=== PATIENT | male | born 1930 | race Caucasian/White ===

== ENCOUNTER 2018-04-26 16:47 | Inpatient (IN) | payer MEDICARE, OTHER ==
[~2018-04-26] VITALS: Ht 172.7 cm; Wt 75.5 kg
--- NOTE | 2018-04-26 18:50 | ERD ---
ER Documentation Chief Complaint Chief Complaint GRND LEVEL FALL WITH LAC TO LEFT FOREHEAD AND POSS LT RING FINGER DISLOCATI HPI This is an 87-year-old male with a past medical history of Alzheimer's dementia who is presenting after a fall. The patient was with his son in the backyard of their home speaking to their neighbors when the patient lost his balance and started to fall. The patient's son grabbed him and was able to slowly bring him to the ground, but the patient still fell on his left hand and hit his head against the dirt in the plantar where they were standing. The patient sustained an abrasion and hematoma around the left eyebrow. He also has tenderness to the left hand. The patient did not lose consciousness. There is no other reported trauma or injury. History and physical is limited secondary to altered mentation as the patient is nonverbal. ROS Review of systems limited secondary to patient's altered mentation. Patient is nonverbal. Allergies Allergies: Coded Allergies: Unknown: Unable to obtain (Unverified , 04/26/18) PMhx/Soc Medical and Surgical Hx: pt denies Surgical Hx History of Surgery: No Anesthesia Reaction: No Hx Neurological Disorder: No Hx Respiratory Disorders: No Hx Cardiac Disorders: No Hx Psychiatric Problems: Yes (alzheimers) Hx Miscellaneous Medical Probl: No Hx Alcohol Use: No Hx Substance Use: No Hx Tobacco Use: No Smoking Status: Former smoker FmHx Family History: No diabetes Physical Exam Vitals Vital Signs Date Temp Pulse Resp B/P (MAP) Pulse Ox O2 O2 Flow FiO2 Time Delivery Rate 04/26/18 98.2 75 16 151/74 97 17:06 (99) Physical Exam Const: No apparent distress, well-developed, well-nourished Head: Normocephalic. Left eyebrow abrasion and hematoma. Eyes: Normal Conjunctiva. Pupils equal, round and reactive to light ENT: Normal External Ears, Nose and Mouth. Neck: Full range of motion. No meningismus. Resp: Clear to auscultation bilaterally, No wheezes, rales or rhonchi Cardio: Regular rate and rhythm. No murmurs, rubs or gallops Abd: Soft, non tender, non distended. Normal bowel sounds Skin: No petechiae or rashes Back: No midline tenderness. No CVA tenderness. Ext: No cyanosis, or edema. Tenderness to the third and fourth digits of the left hand. Pelvis is stable. Neur: Awake and alert. Nonverbal, oriented x0. No facial droop. Moves all extremities spontaneously and pain. No obvious focal deficits. Psych: Demented, nonverbal Procedures/MDM MDM The patient's presentation warrants further investigation. Previous medical records, if available, were reviewed. EKG EKG read by me: Rate/Rhythm: Regular rate and rhythm at a rate of 75 bpm Intervals: Normal Campbell: Normal Impression: No evidence of acute ischemia or arrhythmia IMAGING Imaging and Radiology interpretation reviewed. CXR FINDINGS: No acute infiltrate, pleural effusion or pneumothorax is identified. Cardiomediastinal silhouette is within normal limits. Aortic atherosclerotic calcification is noted. The osseous structures are remarkable for degenerative enthesopathy of the spine. IMPRESSION: No evidence of acute cardiopulmonary process. Aortic atherosclerosis. Electronically viewed and signed by .Roland Mahmood MD, MD on 04/26/2018 18:19 XR Pelvis FINDINGS: No acute fracture or dislocation. Bony mineralization is normal. No radiodense foreign body is identified. Atherosclerotic calcifications are noted. IMPRESSION: No evidence of acute fracture or dislocation. Electronically viewed and signed by .Roland Mahmood MD, MD on 04/26/2018 18:19 XR L Hand FINDINGS: Study is limited by patient position during imaging, with flexion of the fingers, and secondary to patient's hand and fingers being held by a second person. Demineralization limits evaluation of fine osseous detail. Proximal at the proximal interarticular metaphyses of the third and fourth proximal phalanges, with disruption of the fourth MCP joint. There is about 10 mm lateral dislocation of the base of the fourth proximal phalanx on the head of the fourth metacarpal. No additional fractures are identified on this limited series. Soft tissue calcifications are seen in the fingers, and findings may represent the sequela of scleroderma. IMPRESSION: Fractures at the interarticular bases of the third and fourth proximal phalanges, with disruption of the fourth MCP joint. Electronically viewed and signed by Physician Giovanna on 04/26/2018 18:31 CT Head FINDINGS: There is no intracranial hemorrhage, mass effect, or midline shift. No extra-axial fluid collection is seen. Moderate atrophy is identified with bifrontal and by temporal lobe predominance. Prominence of the extraaxial spaces in these locations is noted. Mild decreased attenuation is seen in the periventricular and deep white matter, compatible with microvascular ischemic disease. The beckford white matter differentiation is well preserved with no acute infarct detected. The osseous structures and visualized paranasal sinuses are unremarkable. IMPRESSION: No evidence of acute intracranial pathology. Moderate disproportionate bitemporal and bifrontal lobe atrophy. There is mild microvascular ischemic disease in the periventricular and deep white matter. Electronically viewed and signed by Edita Carrillo MD, on 04/26/2018 17:57 CT C-Spine FINDINGS: There is straightening of the normal lordosis of the cervical spine. Trace anterolisthesis of C2 on C3 and C4 on C5 is noted. There is trace retrolisthesis at C3-4. There is evidence of mild compression of the superior endplate of T1, which appears chronic. No definite acute fracture is evident. C2-3: The disc is normal in height. No significant disk bulge or protrusion is evident. There is no central canal stenosis or foraminal narrowing. There is mild bilateral facet arthropathy. C3-4: There is severe disc space narrowing. A broad based osteophyte/disc complex results in severe acquired central canal stenosis with the AP diameter of the canal measuring approximately 6 mm. Uncovertebral osteophytes and facet arthropathy results in moderate bilateral foraminal narrowing. C4-5: The disc is normal in height. There is a small posterior disc bulge resulting in borderline central stenosis. Facet arthropathy and uncovertebral osteophytes are noted though the foramen are adequately patent. C5-6: Severe disc space narrowing is evident. A broad based osteophyte/disc complex results in mild central stenosis. Uncovertebral osteophytes contributes to severe right and moderate - severe left foraminal narrowing. C6-7: There is moderate - severe disc space narrowing. An osteophyte/disc complex is present without central stenosis per day uncovertebral osteophytes and facet arthropathy results in moderately severe right and mild to moderate left foraminal narrowing. C7-T1: The disc is normal in height. No significant disk bulge or protrusion is evident. There is no central canal stenosis or foraminal narrowing. IMPRESSION: No definite evidence of acute fracture or suspected traumatic subluxation. There is mild chronic-appearing compression of the superior endplate of T1. There is severe acquired central canal stenosis at C3-4 and mild central stenosis at C5-6. Multilevel foraminal narrowing as outlined in detail above. Electronically viewed and signed by .Joseline Carrillo MD, on 04/26/2018 18:02 TREATMENT/DISPOSITION The patient presents after a trauma. He had a mechanical fall and sustained injuries to the left hand and head. The patient was evaluated fully without evidence of emergent posttraumatic pathology. The patient's CT imaging of the head and cervical spine are unremarkable. The patient has no focal deficits. I've low suspicion for intracranial pathology. I have low suspicion for cerebral ischemia or intracranial hemorrhage. The patient has no cervical spine tenderness. He can move his neck in all directions without any pain. As stated above, he does not have any focal deficits. The patient does not have any saddle anesthesia. He has not been incontinent of urine or stool. He has not had any retention of urine or stool. I have low suspicion for spinal cord injury. The patient's chest x-ray does not reveal any evidence of pneumonia or pneumothorax or pulmonary edema or pleural effusion. The patient's cardiomediastinal silhouette is unremarkable. I do not suspect pericardial effusion. I do not see any mediastinal free air. I have low suspicion for esophageal tear or rupture. The patient does not have a widened mediastinum. The patient does not have chest pain radiating to the back. It does not have a sharp or tearing quality. I have low suspicion for thoracic aortic aneurysm or rupture or dissection. The patient's symptoms are not consistent with pulmonary embolism. The patient does not have any abdominal pain. I have low suspicion for posttraumatic intra-abdominal pathology. The patient's vital signs are unremarkable. I low suspicion for hepatic or splenic or renal trauma. The patient does not have any GI or urinary bleeding. I decreased suspicion for intestinal injury. I have low suspicion for urethral injury. The patient does have fractures to the third and fourth digits of the left hand. No reduction is necessary at this time. A splint was applied under my direct supervision. The patient was reassessed and neurovascularly intact with normal capillary refill The patient is currently not able to take pills orally per the report of the son. The patient was offered rectal Tylenol, but the son declined. No emergent diagnoses were identified. At this time, I feel that the patient sta ble for discharge. The patient was instructed to follow-up with a primary care physician in 1-3 days. The patient will also require outpatient reevaluation by an orthopedic surgeon in 1 week. The family is aware of this and will coordinate care with the primary care doctor. The patient will be given strict precautions with which to return to the emergency department. The patient's blood pressure was elevated at greater than 120/80 while in the emergency department. The patient was otherwise stable with no evidence of hypertensive urgency or emergency. The patient does not require admission for blood pressure control. I have discussed with the patient the risks of hypertension. I have instructed the patient to return to the ER for any new or worsening symptoms including chest pain, shortness of breath, headache, blurred vision, confusion, nausea, vomiting or LOC. I have advised the patient to follow up with the primary care physician for outpatient monitoring and treatment for hypertension in 1-3 days. Disclaimer: Inadvertent spelling and grammatical errors are likely due to EHR/dictation software use and do not reflect on the overall quality of patient care. Note that the electronic time recorded on this note does not necessarily reflect the actual time of the patient encounter. Departure Diagnosis: Primary Impression: Fall from ground level Additional Impressions: Head trauma Encounter type: initial encounter Qualified Codes: S09.90XA - Unspecified injury of head, initial encounter Facial abrasion Encounter type: initial encounter Qualified Codes: S00.81XA - Abrasion of other part of head, initial encounter Traumatic hematoma of forehead Encounter type: initial encounter Qualified Codes: S00.83XA - Contusion of other part of head, initial encounter Left hand fracture Encounter type: initial encounter Fracture type: closed Qualified Codes: S62.92XA - Unspecified fracture of left wrist and hand, initial encounter for closed fracture Condition: Stable ANANTH PÉREZ MD Apr 26, 2018 18:48
[2018-04-26] MEDS ORDERED: SOD CHLORIDE 0.9% 1,000 ML IV ONE ×2 (20:30→23:00)
[2018-04-26] MEDS ORDERED: ONDANSETRON 4 MG INJ IV PRN ×2 (21:00→22:00)
[2018-04-26] MEDS ORDERED: ACETAMINOPHEN 325 MG TAB PO PRN (21:00)
[2018-04-26] MEDS ORDERED: IPRATROPIUM (HFA) 12.9 GM INHALER INH PRN (22:00)
[2018-04-26] MEDS ORDERED: CEFEPIME 1GM/50 ML (PMX) 50 ML IVPB SCH (22:00)
[2018-04-26] MEDS ORDERED: ACETAMINOPHEN 650MG/20.3ML CUP PO PRN (22:00)
[2018-04-26] MEDS ORDERED: VANCOMYCIN IV PER PHARMACY XX SCH (22:00)
[2018-04-26] MEDS ORDERED: HYDROCODONE/APAP (5/325) TAB PO PRN ×2 (22:00)
[2018-04-26] MEDS ORDERED: NORepinephrine 8MG/250 ML (PMX 250 ML IV SCH (22:00)
[2018-04-26] MEDS ORDERED: ALBUTEROL HFA 8 GM INHALER INH PRN (22:00)
--- NOTE | 2018-04-26 22:11 | HP ---
Date/Time of Note Date/Time of Note DATE: 04/26/18 TIME: 22:11 Assessment/Plan VTE Prophylaxis SCD applied (from Nsg): Yes Pharmacological prophylaxis: NA/contraindicated Pharm contraindication: bleeding Lines/Catheters IV Catheter Type (from Nrsg): Saline Lock Assessment/Plan Assessment/Plan 1. Status post fall with left perinephric/retroperitoneal hematoma as well as left phalangeal fractures -Patient has been in home hospice for over a year for severe dementia. He is taken off hospice status for now -Family does not want any surgical intervention. ER consulted the on-call surgeon, who also does not believe surgery is warranted for the hematoma -Monitor hemoglobin closely -May repeat CT to evaluate for interval change of the hematoma 2. Severe Alzheimer's dementia: See #1 -Will place a palliative care consult 3. Presumed acute on CKD -IV fluid 4. Sepsis: Unknown source -Family is okay with antibiotics -Follow-up bloody urine culture results CODE STATUS: DNR/DNI. Family also refused pressor support Result Diagram: 04/26/18205404/26/182054 Results 24hrs Laboratory Tests Test 04/26/18 20:55 White Blood Count 23.2 H Red Blood Count 3.60 L Hemoglobin 11.6 L Hematocrit 36.6 L Mean Corpuscular Volume 101.7 H Mean Corpuscular Hemoglobin 32.2 Mean Corpuscular Hemoglobin Concent 31.7 L Red Cell Distribution Width 12.7 Platelet Count 179 Mean Platelet Volume 11.6 H Immature Granulocytes % 0.700 H Neutrophils % 88.9 H Lymphocytes % 4.5 L Monocytes % 5.6 Eosinophils % 0.0 Basophils % 0.3 Nucleated Red Blood Cells % 0.0 Immature Granulocytes # 0.160 H Neutrophils # 20.6 H Lymphocytes # 1.0 Monocytes # 1.3 H Eosinophils # 0.0 Basophils # 0.1 Nucleated Red Blood Cells # 0.0 Sodium Level 143 Potassium Level 5.5 H Chloride Level 104 Carbon Dioxide Level 24 Anion Gap 15 H Blood Urea Nitrogen 25 H Creatinine 1.88 H Est Glomerular Filtrat Rate mL/min Glucose Level 164 Calcium Level 9.3 Total Bilirubin 0.6 Direct Bilirubin 0.00 Indirect Bilirubin 0.6 Aspartate Amino Transf (AST/SGOT) 34 Alanine Aminotransferase (ALT/SGPT) 23 Alkaline Phosphatase 66 Total Protein 8.3 H Albumin 4.5 Globulin 3.80 H Albumin/Globulin Ratio 1.18 HPI/ROS Admit Date/Time Admit Date/Time Hx of Present Illness This is an 87-year-old male with history of severe Alzheimer's dementia who was brought to the ER status post fall with a left upper extremity/hand injury. Patient has been on home hospice for over a year because of severe dementia. He is nonverbal and completely unable to provide any history. His son ("I am like his son"), Jeffrey, at the bedside provide information. He said patient lives with him. Both of them were standing outside in the backyard when all of a sudden the patient fell to the ground. His son attempted to hold him but unable to do so. Family reversed his hospice status and brought him to the hospital for evaluation. Left hand x-ray shows third and fourth proximal phalanx fracture with disruption of the fourth MCP. Hand and forearm plan currently in a splint. Head CT without acute findings. Initial WBC 23,000, creatinine 1.88, potassium 5.5. Pelvic CT shows the following. 1. Diffuse left perinephric subcapsular hematoma and left retroperitoneal hematoma in the perinephric and pararenal spaces extending into the pelvis, the volume of blood is difficult to estimate but approximated at 100 cc. 2. Spleen is normal in size, contour and attenuation but there is concern for hemoperitoneum adjacent to the superior aspect of the spleen and contusion anterior to the spleen. 3. Small left pleural effusion with bibasilar subsegmental atelectasis but no evidence of acute post traumatic intrathoracic abnormality, tracheal secretions are incidentally noted. 4. Mild cardiomegaly and atherosclerotic calcification of the aorta. 5. There is no evidence of displaced fracture. 6. Cholelithiasis. 7. Constipation pattern with possible fecal impaction of the rectum. While in the ER, patient became hypotensive with systolic blood pressure in the 60s. He was given IV fluid and was started on PRBCs. Initial hemoglobin was 11.6, repeat 9.7. Family wants to keep him DNR/DNI. The son also refused central line placement for a pressor. Blood pressure however improved and now in the low 100s. Patient is nonverbal, but looks comfortable. His son stated that the only medical problem the patient has is severe Alzheimer's dementia. He had some type of surgery 60 years ago otherwise no history of surgery. PMH/Family/Social Past Medical History Medical History: other (Severe Alzheimer's dementia) Medications Current Medications Ondansetron HCl (Zofran Inj) 4 mg ER BRIDGE PRN IV NAUSEA/VOMITING; Start 04/26/18 at 21:00; Stop 04/27/18 at 20:59 Acetaminophen (Tylenol Tab) 650 mg ER BRIDGE PRN PO .MILD PAIN 1-3 OR TEMP; Start 04/26/18 at 21:00; Stop 04/27/18 at 20:59 Ondansetron HCl (Zofran Inj) 4 mg Q6H PRN IV NAUSEA AND/OR VOMITING; Start 04/26/18 at 22:00 Albuterol (Ventolin Hfa) 4 puff Q2H RESP THERAPY PRN INH SHORTNESS OF BREATH; Start 04/26/18 at 22:00 Ipratropium [place] (Atrovent Hfa) 4 puff Q2H RESP THERAPY PRN INH SHORTNESS OF BREATH; Start 04/26/18 at 22:00 Acetaminophen (Tylenol Liquid) 650 mg Q6H PRN PO PAIN LEVEL 1-3 OR FEVER; Start 04/26/18 at 22:00 Acetaminophen/ Hydrocodone Bitart ([place] (5/325)) 1 tab Q6H PRN PO PAIN LEVEL 4-6; Start 04/26/18 at 22:00 Acetaminophen/ Hydrocodone Bitart ([place] (5/325)) 2 tab Q6H PRN PO PAIN LEVEL 7-10; Start 04/26/18 at 22:00 Norepinephrine 250 ml @ 1.875 mls/ hr PER PROTOCOL IV ; Start 04/26/18 at 22:00 Dextrose/Sodium Chloride 1,000 ml @ 100 mls/hr Q10H IV ; Start 04/26/18 at 22:00 Cefepime HCl 50 ml @ 100 mls/hr Q12 IVPB ; Start 04/26/18 at 22:00 Vancomycin HCl (Vanco Iv Per Pharmacy) VANCOMYCIN PER PHARMACY PER PROTOCOL XX ; Start 04/26/18 at 22:00 Coded Allergies: Unknown: Unable to obtain (Unverified , 04/26/18) Past Surgical History Past Surgical Hx: other (Unknown surgery 60 years ago) Family History Significant Family History: no pertinent family hx Social History Alcohol Use: none Smoking Status: Former smoker Drug Use: none Exam/Review of Systems Vital Signs Vitals Vital Signs Date Temp Pulse Resp B/P (MAP) Pulse Ox O2 O2 Flow FiO2 Time Delivery Rate 04/26/18 75 16 67/41 (50) 98 Room Air 21:01 70 04/26/18 98.2 17:06 Exam Constitutional: other (Nonverbal, not oriented. His eyes are open and he looks comfortable) Head: normocephalic, atraumatic Eyes: PERRL ENMT: other (Edentulous) Respiratory: clear to auscultation Cardiovascular: regular rate and rhythm Gastrointestinal: soft, other (Slight grimace is noted on palpation of left abdomen and flank area. No ecchymosis or swelling noted) Extremities: normal pulses GANESH CHANDLER MD Apr 26, 2018 22:11
[2018-04-26] MEDS ORDERED: SOD CHLORIDE 0.9% 0 ML IV ONE (23:26)
[2018-04-27] VITALS (10 sets, daily range): BP systolic 90–111; BP diastolic 51–67; PULSE 61–78; RESP 18–20; Ht 172.7 cm; Wt 75.5 kg
[2018-04-27] MEDS: DEXTROSE 5%-0.45% NACL 1,000 ML IV SCH ×3 (00:06→18:00)
[2018-04-27] MEDS ORDERED: CEFEPIME 1GM/50 ML (PMX) 50 ML IVPB SCH ×2 (02:00→22:00)
[2018-04-27] MEDS ORDERED: VANCOMYCIN HCL 1.5 GM in SOD CHLORIDE 0.9% 250 ML IVPB SCH ×2 (03:00→06:00)
[2018-04-27] MEDS ORDERED: RIVA1PAT2 TD (14:04)
[2018-04-27] MEDS ORDERED: MEMA10TA PO (14:04)
[2018-04-27] MEDS ORDERED: CYAN100080 PO (14:04)
[2018-04-27] MEDS ORDERED: MULTI PO (14:04)
--- NOTE | 2018-04-27 14:10 | PN ---
Date/Time of Note Date/Time of Note DATE: 04/27/18 TIME: 14:07 Assessment/Plan VTE Prophylaxis SCD applied (from Nsg): Yes Pharmacological prophylaxis: heparin Lines/Catheters IV Catheter Type (from Nrsg): Saline Lock Assessment/Plan Hospital Course 87 yo male wtih advanced dementia who suffered fall leading to kidney hematoma and hemoperitoneum and hand fracture Hemoperitoneum from kindye hematoma: - Monitor CBC, repeat CT PRN for change in clinical status - Very poor surgical candidate and this is generally managed non-surgically regardless Hand fracture: - Continue immobilization Dementia: - Stable Family requesting placement in [facility], CM aware DNR Result Diagram: 04/26/18 2346 04/27/18 0120 Results 24hrs Laboratory Tests Test 04/26/18 20:55 04/26/18 23:46 04/26/18 23:47 04/27/18 01:20 White Blood Count 23.2 H 24.6 H Red Blood Count 3.60 L 3.07 L Hemoglobin 11.6 L 9.7 L Hematocrit 36.6 L 30.6 L Mean Corpuscular Volume 101.7 H 99.7 Mean Corpuscular 32.2 31.6 Hemoglobin Mean Corpuscular 31.7 L 31.7 L Hemoglobin Concent Red Cell Distribution 12.7 12.8 Width Platelet Count 179 147 Mean Platelet Volume 11.6 H 11.7 H Immature Granulocytes % 0.700 H 1.100 H Neutrophils % 88.9 H 88.7 H Lymphocytes % 4.5 L 2.6 L Monocytes % 5.6 7.3 Eosinophils % 0.0 0.0 Basophils % 0.3 0.3 Nucleated Red Blood 0.0 0.0 Cells % Immature Granulocytes # 0.160 H 0.270 H Neutrophils # 20.6 H 21.8 H Lymphocytes # 1.0 0.7 L Monocytes # 1.3 H 1.8 H Eosinophils # 0.0 0.0 Basophils # 0.1 0.1 Nucleated Red Blood 0.0 0.0 Cells # Sodium Level 143 140 Potassium Level 5.5 H 4.9 Chloride Level 104 108 Carbon Dioxide Level 24 23 Anion Gap 15 H 9 # Blood Urea Nitrogen 25 H 24 H Creatinine 1.88 H 1.76 H Est Glomerular Filtrat Rate mL/min Glucose Level 164 379 #H Calcium Level 9.3 7.8 L Total Bilirubin 0.6 0.7 Direct Bilirubin 0.00 0.00 Indirect Bilirubin 0.6 0.7 Aspartate Amino 34 24 Transf (AST/SGOT) Alanine 23 25 Aminotransferase (ALT/SG PT) Alkaline Phosphatase 66 52 Total Protein 8.3 H 6.2 # Albumin 4.5 3.2 #L Globulin 3.80 H 3.00 Albumin/Globulin Ratio 1.18 1.06 Prothrombin Time 13.9 Prothrombin Time Ratio 1.1 INR International 1.06 Normalized Ratio Lipase 107 Subjective 24 Hr Interval Summary Free Text/Dictation Patietn comfortable With dementia unable to communicate Exam/Review of Systems Exam Vitals Vital Signs Date Temp Pulse Resp B/P (MAP) Pulse Ox O2 O2 Flow FiO2 Time Delivery Rate 04/27/18 71 12:01 04/27/18 98.7 18 106/67 94 Room Air 11:40 (80) Exam Appears comfortable, no distress Arousable to noxiosu stimlui Dementia, disoriented Breathign comfortably RRR CTAB L hand in brace Soft nt nd Results Results 24hrs Laboratory Tests Test 04/26/18 20:55 04/26/18 23:46 04/26/18 23:47 04/27/18 01:20 White Blood Count 23.2 H 24.6 H Red Blood Count 3.60 L 3.07 L Hemoglobin 11.6 L 9.7 L Hematocrit 36.6 L 30.6 L Mean Corpuscular Volume 101.7 H 99.7 Mean Corpuscular 32.2 31.6 Hemoglobin Mean Corpuscular 31.7 L 31.7 L Hemoglobin Concent Red Cell Distribution 12.7 12.8 Width Platelet Count 179 147 Mean Platelet Volume 11.6 H 11.7 H Immature Granulocytes % 0.700 H 1.100 H Neutrophils % 88.9 H 88.7 H Lymphocytes % 4.5 L 2.6 L Monocytes % 5.6 7.3 Eosinophils % 0.0 0.0 Basophils % 0.3 0.3 Nucleated Red Blood 0.0 0.0 Cells % Immature Granulocytes # 0.160 H 0.270 H Neutrophils # 20.6 H 21.8 H Lymphocytes # 1.0 0.7 L Monocytes # 1.3 H 1.8 H Eosinophils # 0.0 0.0 Basophils # 0.1 0.1 Nucleated Red Blood 0.0 0.0 Cells # Sodium Level 143 140 Potassium Level 5.5 H 4.9 Chloride Level 104 108 Carbon Dioxide Level 24 23 Anion Gap 15 H 9 # Blood Urea Nitrogen 25 H 24 H Creatinine 1.88 H 1.76 H Est Glomerular Filtrat Rate mL/min Glucose Level 164 379 #H Calcium Level 9.3 7.8 L Total Bilirubin 0.6 0.7 Direct Bilirubin 0.00 0.00 Indirect Bilirubin 0.6 0.7 Aspartate Amino 34 24 Transf (AST/SGOT) Alanine 23 25 Aminotransferase (ALT/SG PT) Alkaline Phosphatase 66 52 Total Protein 8.3 H 6.2 # Albumin 4.5 3.2 #L Globulin 3.80 H 3.00 Albumin/Globulin Ratio 1.18 1.06 Prothrombin Time 13.9 Prothrombin Time Ratio 1.1 INR International 1.06 Normalized Ratio Lipase 107 Medications Medication Current Medications Ondansetron HCl (Zofran Inj) 4 mg ER BRIDGE PRN IV NAUSEA/VOMITING; Start 04/26/18 at 21:00; Stop 04/27/18 at 20:59 Acetaminophen (Tylenol Tab) 650 mg ER BRIDGE PRN PO .MILD PAIN 1-3 OR TEMP Last administered on 04/27/18at 02:44; Admin Dose 650 MG; Start 04/26/18 at 21:00; Stop 04/27/18 at 20:59 Ondansetron HCl (Zofran Inj) 4 mg Q6H PRN IV NAUSEA AND/OR VOMITING; Start 04/26/18 at 22:00 Albuterol (Ventolin Hfa) 4 puff Q2H RESP THERAPY PRN INH SHORTNESS OF BREATH; Start 04/26/18 at 22:00 Ipratropium [place] (Atrovent Hfa) 4 puff Q2H RESP THERAPY PRN INH SHORTNESS OF BREATH; Start 04/26/18 at 22:00 Acetaminophen (Tylenol Liquid) 650 mg Q6H PRN PO PAIN LEVEL 1-3 OR FEVER; Start 04/26/18 at 22:00 Acetaminophen/ Hydrocodone Bitart ([place] (5/325)) 1 tab Q6H PRN PO PAIN LEVEL 4-6; Start 04/26/18 at 22:00 Acetaminophen/ Hydrocodone Bitart ([place] (5/325)) 2 tab Q6H PRN PO PAIN LEVEL 7-10; Start 04/26/18 at 22:00 Dextrose/Sodium Chloride 1,000 ml @ 100 mls/hr Q10H IV Last administered on 04/27/18at 12:53; Admin Dose 100 MLS/HR; Start 04/26/18 at 22:00 Vancomycin HCl (Vanco Iv Per Pharmacy) VANCOMYCIN PER PHARMACY PER PROTOCOL XX ; Start 04/26/18 at 22:00 Cefepime HCl 50 ml @ 100 mls/hr Q24H IVPB ; Start 04/27/18 at 22:00 Vancomycin HCl 250 ml @ 125 mls/hr Q36H IVPB ; Start 04/28/18 at 18:00 ADAM KEVIN MD Apr 27, 2018 14:09
[2018-04-28] VITALS: BP 123/54; PULSE 85; RESP 17
[2018-04-28 02:00] VITALS: BP 126/57; PULSE 80; RESP 18
[2018-04-28] MEDS: DEXTROSE 5%-0.45% NACL 1,000 ML IV SCH (04:05)
[2018-04-28] MEDS ORDERED: VANCOMYCIN 750 MG (PMX) 250 ML IVPB SCH (06:00)
[2018-04-28 08:00] VITALS: BP 134/54; PULSE 78; RESP 20
[2018-04-28 14:00] VITALS: BP 128/62; PULSE 76; RESP 18
--- NOTE | 2018-04-28 14:19 | PN ---
Date/Time of Note Date/Time of Note DATE: 04/28/18 TIME: 14:17 Assessment/Plan VTE Prophylaxis Risk score (from Nsg)>0 risk: 4 SCD applied (from Nsg): Yes Pharmacological prophylaxis: heparin Lines/Catheters IV Catheter Type (from Nrsg): Saline Lock Urinary Cath still in place: No Assessment/Plan Hospital Course 87 yo male wtih advanced dementia who suffered fall leading to kidney hematoma and hemoperitoneum and hand fracture Hemoperitoneum from kindye hematoma: - Monitor CBC, repeat CT PRN for change in clinical status - Very poor surgical candidate and this is generally managed non-surgically regardless Hand fracture: - Continue immobilization Dementia: - Stable Family requesting placement in custodial, CM aware DNR Result Diagram: 04/28/18 0653 04/28/18 0633 Results 24hrs Laboratory Tests Test 04/28/18 06:33 04/28/18 06:53 Sodium Level 145 H Potassium Level 4.7 Chloride Level 113 H Carbon Dioxide Level 24 Anion Gap 8 Blood Urea Nitrogen 36 #H Creatinine 2.33 H Est Glomerular Filtrat Rate mL/min Glucose Level 122 # Calcium Level 8.2 L White Blood Count 11.4 #H Red Blood Count 2.70 L Hemoglobin 8.7 L Hematocrit 27.5 L Mean Corpuscular Volume 101.9 H Mean Corpuscular Hemoglobin 32.2 Mean Corpuscular Hemoglobin Concent 31.6 L Red Cell Distribution Width 13.3 Platelet Count 128 L Mean Platelet Volume 12.1 H Immature Granulocytes % 0.400 Neutrophils % 72.1 Lymphocytes % 16.2 Monocytes % 10.2 Eosinophils % 0.8 Basophils % 0.3 Nucleated Red Blood Cells % 0.0 Immature Granulocytes # 0.050 H Neutrophils # 8.2 H Lymphocytes # 1.9 Monocytes # 1.2 H Eosinophils # 0.1 Basophils # 0.0 Nucleated Red Blood Cells # 0.0 Subjective 24 Hr Interval Summary Free Text/Dictation Patient remains nonverbal No distress Son at bedside, asking for PT eval. Asking for cast to hand. Confirms DNR status and requests custodial Exam/Review of Systems Exam Vitals Vital Signs Date Temp Pulse Resp B/P (MAP) Pulse Ox O2 O2 Flow FiO2 Time Delivery Rate 04/28/18 98.6 78 20 134/54 94 08:00 (80) 04/27/18 Room Air 11:40 Intake and Output 04/27/18 04/27/18 04/28/18 1515:00 23:00 07:00 IntakeIntake Total 250 ml 800 ml 700 ml BalanceBalance 250 ml 800 ml 700 ml Exam + JVD Comfortably Slight tachynpea, nonlabored R arm in splint Dmenetia, no response to commands Results Results 24hrs Laboratory Tests Test 04/28/18 06:33 04/28/18 06:53 Sodium Level 145 H Potassium Level 4.7 Chloride Level 113 H Carbon Dioxide Level 24 Anion Gap 8 Blood Urea Nitrogen 36 #H Creatinine 2.33 H Est Glomerular Filtrat Rate mL/min Glucose Level 122 # Calcium Level 8.2 L White Blood Count 11.4 #H Red Blood Count 2.70 L Hemoglobin 8.7 L Hematocrit 27.5 L Mean Corpuscular Volume 101.9 H Mean Corpuscular Hemoglobin 32.2 Mean Corpuscular Hemoglobin Concent 31.6 L Red Cell Distribution Width 13.3 Platelet Count 128 L Mean Platelet Volume 12.1 H Immature Granulocytes % 0.400 Neutrophils % 72.1 Lymphocytes % 16.2 Monocytes % 10.2 Eosinophils % 0.8 Basophils % 0.3 Nucleated Red Blood Cells % 0.0 Immature Granulocytes # 0.050 H Neutrophils # 8.2 H Lymphocytes # 1.9 Monocytes # 1.2 H Eosinophils # 0.1 Basophils # 0.0 Nucleated Red Blood Cells # 0.0 Medications Medication Current Medications Ondansetron HCl (Zofran Inj) 4 mg Q6H PRN IV NAUSEA AND/OR VOMITING; Start 04/26/18 at 22:00 Albuterol (Ventolin Hfa) 4 puff Q2H RESP THERAPY PRN INH SHORTNESS OF BREATH; Start 04/26/18 at 22:00 Ipratropium [place] (Atrovent Hfa) 4 puff Q2H RESP THERAPY PRN INH SHORTNESS OF BREATH; Start 04/26/18 at 22:00 Acetaminophen (Tylenol Liquid) 650 mg Q6H PRN PO PAIN LEVEL 1-3 OR FEVER; Start 04/26/18 at 22:00 Acetaminophen/ Hydrocodone Bitart ([place] (5/325)) 1 tab Q6H PRN PO PAIN LEVEL 4-6; Start 04/26/18 at 22:00 Acetaminophen/ Hydrocodone Bitart ([place] (5/325)) 2 tab Q6H PRN PO PAIN LEVEL 7-10; Start 04/26/18 at 22:00 ADAM KEVIN MD Apr 28, 2018 14:19
[2018-04-28] MEDS ORDERED: HYDROmorphONE 0.5 MG/0.5 ML SYG IV STA (17:12)
[2018-04-28] MEDS ORDERED: VANCOMYCIN 1 GM 250 ML IVPB SCH (18:00)
--- NOTE | 2018-04-28 20:09 | CONS ---
Assessment/Plan Assessment/Plan Hospital Course (Demo Recall) This is an 87-year-old male with end-stage Alzheimer's and on hospice. He does not use his hands and he is 100% dependent on other people for his care. Current concern is pain control. Given the patient's current status as well as goals and attempted reduction and splinting of the phalangeal fractures will be performed. However the fracture dislocation is very unstable and may dislocate again without surgery. I made this clear to the family and they understood this and wished to proceed with closed reduction and splinting with no plan for surgery as the goal is pain control. After the fracture is healed and after some time the pain will decrease. Plan: Extension splint left hand Nonweightbearing left hand Follow-up in clinic in 4 weeks with x-rays. Assessment/Plan (Daily) Procedure: Closed reduction and short arm splint of left hand. The ring finger metacarpal phalangeal joint was reduced however was highly unstable and continued to dislocate. Reduction was held in the best position possible correcting the rotation deformity the patient was placed in an extension splint. The patient's forearm and hand were wrapped in soft roll followed by plaster splint followed by an Clark wrap. A three-point mold was performed until the plaster hardened. Consultation Date/Type/Reason Admit Date/Time Date of Consultation: Apr 28, 2018 Reason for Consultation Left hand fractures Date/Time of Note DATE: 04/28/18 TIME: 20:01 Hx of Present Illness This is an 87-year-old male with multiple medical problems including severe end-stage Alzheimer's. He has been on home hospice for over a year. He is DNR. He fell on April 26 and sustained a left hand injury. He did hit his head with no loss of consciousness. He was also diagnosed with a renal laceration. He was admitted on April 26. I was consulted today on April 28. Patient was placed in a splint by the emergency department in the position of comfort. Talking with the son as the patient is nonverbal he does not use his hands. The he is 100% dependent on others for his care and ADLs. At this point the family is interested in keeping him comfortable from pain. Subjective hx not possible: pt non-verbal Musculoskeletal: bone/joint pain Past Medical History Medical History: other (Severe Alzheimer's dementia) Home Meds Reported Medications Cyanocobalamin* (Vitamin B-12*) 1,000 Mcg Tablet.sa, 500 MCG PO Q48, TAB Takes 500mcg every other day. Can start today. 04/27/18 Multivitamins* (Theragran*) 1 Tab Tab, 1 TAB PO DAILY, TAB 04/27/18 Rivastigmine* Patch (Exelon* Patch) 9.5 Mg/24 Hr Patch.td24, 1 PATCH TD q48, PATCH Given every other day. Starts today. Given at 2pm per family, every other day. 04/27/18 Memantine* (Namenda*) 10 Mg Tablet, 20 MG PO Q48, #30 TAB Patients takes med every other day. Last dose at 5pm yesterday per family. Starts tomorrow at 5pm 04/28/18. 04/27/18 Medications Current Medications Ondansetron HCl (Zofran Inj) 4 mg Q6H PRN IV NAUSEA AND/OR VOMITING; Start 04/26/18 at 22:00 Albuterol (Ventolin Hfa) 4 puff Q2H RESP THERAPY PRN INH SHORTNESS OF BREATH; Start 04/26/18 at 22:00 Ipratropium [place] (Atrovent Hfa) 4 puff Q2H RESP THERAPY PRN INH SHORTNESS OF BREATH; Start 04/26/18 at 22:00 Acetaminophen (Tylenol Liquid) 650 mg Q6H PRN PO PAIN LEVEL 1-3 OR FEVER; Start 04/26/18 at 22:00 Acetaminophen/ Hydrocodone Bitart ([place] (5/325)) 1 tab Q6H PRN PO PAIN LEVEL 4-6; Start 04/26/18 at 22:00 Acetaminophen/ Hydrocodone Bitart ([place] (5/325)) 2 tab Q6H PRN PO PAIN LEVEL 7-10; Start 04/26/18 at 22:00 Allergies: Uncoded Allergies: an antibiotic but unable to recall specific name (Allergy, Unknown, 04/27/18) info from friend/PAMELA Toro Past Surgical History Past Surgical Hx: noncontributory, other (Unknown surgery 60 years ago) Family History Significant Family History: no pertinent family hx Social History Alcohol Use: none Smoking Status: Never smoker Drug Use: none Exam/Review of Systems Exam Vitals Vital Signs Date Temp Pulse Resp B/P (MAP) Pulse Ox O2 O2 Flow FiO2 Time Delivery Rate 04/28/18 97.8 76 18 128/62 96 14:00 (84) 04/27/18 Room Air 11:40 Intake and Output 04/27/18 04/27/18 04/28/18 1515:00 23:00 07:00 IntakeIntake Total 250 ml 800 ml 700 ml BalanceBalance 250 ml 800 ml 700 ml Exam General: Awake, alert, in no acute distress, pleasant and cooperative Heart: regular rhythm Lungs: breathing comfortably, no tachypnea or dyspnea MUSCULOSKELETAL: Left upper extremity: Skin is intact. There is ecchymosis and swelling over the middle, ring, and small finger. There is gross deformity and rotation of the ring finger. There is tenderness to palpation along the middle, ring, small finger. There is brisk cap refill to all digits. Patient is unable to follow commands or verbally communicative for motor and sensation exam. Results Result Diagram: 04/28/18 0653 04/28/18 0633 Results 24hrs Laboratory Tests Test 04/28/18 06:33 04/28/18 06:53 Sodium Level 145 H Potassium Level 4.7 Chloride Level 113 H Carbon Dioxide Level 24 Anion Gap 8 Blood Urea Nitrogen 36 #H Creatinine 2.33 H Est Glomerular Filtrat Rate mL/min Glucose Level 122 # Calcium Level 8.2 L White Blood Count 11.4 #H Red Blood Count 2.70 L Hemoglobin 8.7 L Hematocrit 27.5 L Mean Corpuscular Volume 101.9 H Mean Corpuscular Hemoglobin 32.2 Mean Corpuscular Hemoglobin Concent 31.6 L Red Cell Distribution Width 13.3 Platelet Count 128 L Mean Platelet Volume 12.1 H Immature Granulocytes % 0.400 Neutrophils % 72.1 Lymphocytes % 16.2 Monocytes % 10.2 Eosinophils % 0.8 Basophils % 0.3 Nucleated Red Blood Cells % 0.0 Immature Granulocytes # 0.050 H Neutrophils # 8.2 H Lymphocytes # 1.9 Monocytes # 1.2 H Eosinophils # 0.1 Basophils # 0.0 Nucleated Red Blood Cells # 0.0 Imaging Imaging 3 views of the left hand were obtained in the emergency department. Imaging is limited by patient position. There is acute fracture of the base of the middle proximal phalanx. It involves approximately 50% of the joint. The joint is reduced. There is a fracture dislocation involving the metacarpal phalangeal joint of the ring finger through the base of the proximal phalanx. At least 50% the joint is involved. No other injury is appreciated however secondary to decreased bone density and positioning there may be other occult fractures. Medications Medication Current Medications Ondansetron HCl (Zofran Inj) 4 mg Q6H PRN IV NAUSEA AND/OR VOMITING; Start 04/26/18 at 22:00 Albuterol (Ventolin Hfa) 4 puff Q2H RESP THERAPY PRN INH SHORTNESS OF BREATH; Start 04/26/18 at 22:00 Ipratropium [place] (Atrovent Hfa) 4 puff Q2H RESP THERAPY PRN INH SHORTNESS OF BREATH; Start 04/26/18 at 22:00 Acetaminophen (Tylenol Liquid) 650 mg Q6H PRN PO PAIN LEVEL 1-3 OR FEVER; Start 04/26/18 at 22:00 Acetaminophen/ Hydrocodone Bitart ([place] (5/325)) 1 tab Q6H PRN PO PAIN LEVEL 4-6; Start 04/26/18 at 22:00 Acetaminophen/ Hydrocodone Bitart ([place] (5/325)) 2 tab Q6H PRN PO PAIN LEVEL 7-10; Start 04/26/18 at 22:00 KIRBY PATEL MD Apr 28, 2018 20:09
[2018-04-28 20:23] VITALS: BP 97/53; PULSE 72; RESP 16
[2018-04-29 03:02] VITALS: BP 99/50; PULSE 80; RESP 16
[2018-04-29 08:00] VITALS: BP 105/56; PULSE 84; RESP 20
[2018-04-29 14:00] VITALS: BP 130/70; PULSE 84; RESP 20
--- NOTE | 2018-04-29 15:29 | PDOCDIS ---
Discharge Instructions DIAGNOSIS Discharge Diagnosis Kidney Hematoma Hand fracture CONDITION [id number] Patient Condition: [id number] Guarded FOLLOW UP/APPOINTMENTS Follow-up Plan Make an appointment to see Dr Mcwilliams from orthopedics for further care of hand fracture. Contact number is ADAM KEVIN MD Apr 29, 2018 15:29
--- NOTE | 2018-04-29 15:30 | DS ---
Date/Time of Note Date/Time of Note DATE: 04/29/18 TIME: 15:29 Discharge Summary Admission/Discharge Info Admit Date/Time Apr 27, 2018 at 01:26 Discharge Date/Time Discharge Diagnosis Kidney Hematoma Hand fracture Patient Condition: Guarded Hospital Course 87 yo male wtih advanced dementia who suffered fall leading to kidney hematoma and hemoperitoneum and hand fracture Hemoperitoneum from kidney hematoma: - Found on CT imaging. 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 Continue immobilization as outpatient Dementia: - Stable Family requested to take him home with hospice Home Meds Reported Medications Cyanocobalamin* (Vitamin B-12*) 1,000 Mcg Tablet.sa, 500 MCG PO Q48, TAB Takes 500mcg every other day. Can start today. 04/27/18 Multivitamins* (Theragran*) 1 Tab Tab, 1 TAB PO DAILY, TAB 04/27/18 Rivastigmine* Patch (Exelon* Patch) 9.5 Mg/24 Hr Patch.td24, 1 PATCH TD q48, PATCH Given every other day. Starts today. Given at 2pm per family, every other day. 04/27/18 Memantine* (Namenda*) 10 Mg Tablet, 20 MG PO Q48, #30 TAB Patients takes med every other day. Last dose at 5pm yesterday per family. Starts tomorrow at 5pm 04/28/18. 04/27/18 Follow-up Plan Make an appointment to see Dr Mcwilliams from orthopedics for further care of hand fracture. Contact number is Primary Care Provider Care Physician No Primary Pending Labs Laboratory Tests Test 04/29/18 05:35 White Blood Count 14.0 10^3/ul (4.8-10.8) Red Blood Count 2.73 10^6/ul (4.70-6.10) Hemoglobin 8.8 g/dl (14.0-18.0) Hematocrit 27.2 % (42.0-52.0) Mean Corpuscular Volume 99.6 fl (82.0-101.0) Mean Corpuscular Hemoglobin 32.2 pg (29.0-33.0) Mean Corpuscular Hemoglobin Concent 32.4 g/dl (32.0-37.0) Red Cell Distribution Width 13.1 % (11.5-14.5) Platelet Count 118 10^3/UL (140-415) Mean Platelet Volume 12.3 fl (7.4-10.4) Immature Granulocytes % 0.600 % (0.001-0.429) Neutrophils % 67.5 % (39.0-77.0) Lymphocytes % 20.0 % (15.0-51.0) Monocytes % 11.2 % (0.0-11.0) Eosinophils % 0.4 % (0.0-7.0) Basophils % 0.3 % (0.0-2.0) Nucleated Red Blood Cells % 0.0 /100WBC (0.0-0.0) Immature Granulocytes # 0.090 10^3/ul (0.0-0.031) Neutrophils # 9.4 10^3/ul (1.6-7.5) Lymphocytes # 2.8 10^3/ul (0.8-2.9) Monocytes # 1.6 10^3/ul (0.3-0.9) Eosinophils # 0.1 10^3/ul (0.0-0.5) Basophils # 0.0 10^3/ul (0.0-0.1) Nucleated Red Blood Cells # 0.0 10^3/ul (0.0-0.0) ADAM KEVIN MD Apr 29, 2018 15:30
== END 2018-04-29 20:09 | disposition home health service (06) | DRG 699 ==
LOC: E/R 16:47 → 6WM 20:39 → CANRESERV 23:08 → EDBEDREQ 04-27 01:06 → EDBEDREQSVC 04-27 01:06 → OBSVTOIN 04-27 01:26 → EDBEDREQSVC 04-27 04:21 → 5EC 04-27 23:45 → PP2 04-28
PROVIDERS: ADMIT Internal Medicine; ATTEND Internal Medicine
PROC: 30233N1 Transfusion of Nonautologous Red Blood Cells into Peripheral Vein, Percutaneous Approach (ICD-10-PCS; 2018-04-27)
PROC: 0PSQXZZ Reposition Left Metacarpal, External Approach (ICD-10-PCS; principal; 2018-04-28)
DX: S37.012A Minor contusion of left kidney, initial encounter (principal); N17.9 Acute kidney failure, unspecified; W19.XXXA Unspecified fall, initial encounter; S62.603A Fracture of unspecified phalanx of left middle finger, initial encounter for closed fracture; S62.605A Fracture of unspecified phalanx of left ring finger, initial encounter for closed fracture; G30.9 Alzheimer's disease, unspecified; F02.80 Dementia in other diseases classified elsewhere, unspecified severity, without behavioral disturbance, psychotic disturbance, mood disturbance, and anxiety; N18.9 Chronic kidney disease, unspecified; Z66 Do not resuscitate
CPT/HCPCS: 36415; 36430; 70450; 71045; 71250; 72125; 72170; 74176; 80048; 80053; 83690; 85025; 85610; 86850; 86900; 86901; 86920; 87040; 93005; 97116; 97162; 97530; G0378; J0692; J1170; J3370; J7030; J7040; J7042; J7050; P9016